=== PATIENT | female | born 1960 | race Two or more races ===

== ENCOUNTER 2016-07-19 21:00 | Emergency (ER) | payer BC ==
[~2016-07-19] VITALS: Ht 154.9 cm; Wt 77.1 kg
[2016-07-19 21:11] VITALS: BP 183/77
[2016-07-19] MEDS ORDERED: IBUPROFEN 800 MG TABLET. PO ONE (21:30)
--- NOTE | 2016-07-19 21:31 | PHYS DOC ---
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 She states that she has been having wrist pain and discomfort for the last few days. She denies any injury or trauma. She states that there is swelling in the wrist area no bruising or discoloration noted. Patient has not taken anything for pain and discomfort. Patient is right-hand dominant. Review of Systems Review of Systems Constitutional: Denies fever or chills [] Eyes: Denies change in visual acuity, redness, or eye pain [] HENT: Denies nasal congestion or sore throat [] Respiratory: Denies cough or shortness of breath [] Cardiovascular: No additional information not addressed in HPI [] GI: Denies abdominal pain, nausea, vomiting, bloody stools or diarrhea [] : Denies dysuria or hematuria [] Musculoskeletal: Denies back pain. C/o left wrist pain Integument: Denies rash or skin lesions [] Neurologic: Denies headache, focal weakness or sensory changes [] Endocrine: Denies polyuria or polydipsia [] Current Medications Current Medications Current Medications Medications (Trade) Dose Ordered Sig/Susie Start Time Stop Time Status Last Admin Dose Admin Ibuprofen (Motrin) 800 mg 1X ONCE 07/19/16 21:30 07/19/16 21:31 DC 07/19/16 21:43 800 MG Allergies Allergies Allergies Coded Allergies Type Severity Reaction Last Updated Verified No Known Drug Allergies 07/19/16 No Physical Exam Physical Exam Constitutional: Well developed, well nourished, no acute distress, non-toxic appearance. [] HENT: Normocephalic, atraumatic, bilateral external ears normal, oropharynx moist, no oral exudates, nose normal. [] Eyes: PERRLA, EOMI, conjunctiva normal, no discharge. [] Neck: Normal range of motion, no tenderness, supple, no stridor. [] Cardiovascular:Heart rate regular rhythm, no murmur [] Lungs & Thorax: Bilateral breath sounds clear to auscultation [] Skin: Warm, dry, no erythema, no rash. [] Back: No tenderness Extremities: Left wrist tenderness, swelling noted to the left wrist with tenderness noted over scaphoid area. No cyanosis, no clubbing, ROM intact, no edema. Peripheral pulses 2+ cap refill brisk less than 2 seconds. Patient with good sensation to the fingers. She is able to move the fingers with no difficulty. Neurologic: Alert and oriented X 3, normal motor function, normal sensory function, no focal deficits noted. [] Psychologic: Affect normal, judgement normal, mood normal. [] Current Patient Data Vital Signs Vital Signs Date Time Temp Pulse Resp B/P (MAP) Pulse Ox O2 Delivery O2 Flow Rate FiO2 07/19/16 21:11 98.3 67 20 97 Room Air 98.3 EKG EKG [] Radiology/Procedures Radiology/Procedures [] Course & Med Decision Making Course & Med Decision Making Pertinent Labs and Imaging studies reviewed. (See chart for details) X-rays negative for any bony abnormalities per Dr Kunz. The wrist does not feel warm to touch. There is no redness noted. Patient will be placed in a sugar tong splint with recommendations to follow-up with orthopedic. The be provided with Dr. Queen's name and number. Patient will be discharged home in stable condition signs symptoms to return back to emergency department as been provided. Recommended ibuprofen 100 mg every 8 hours with food stop taking few develop an upset stomach. [] Dragon Disclaimer Dragon Disclaimer This electronic medical record was generated, in whole or in part, using a voice recognition dictation system. Departure Departure Impression: Primary Impression: Sprain of wrist, left Disposition: 01 HOME, SELF-CARE Condition: STABLE Referrals: CRISTAL QUEEN MD Patient Instructions: Arm Sling Use-Brief, Splint Care, [id number], Wrist Pain, [id number] Additional Instructions: Activity as tolerated Ibuprofen 600 mg every 8 hours with food, stop taking if you develop upset stomach Ice packs on 20 minutes and off 20 minutes several times a day Elevation as much as possible Keep the splint in place until you followup with orthopedic Call tomorrow for orthopedic appointment in next week Return to emergency department as needed for signs and symptoms that become worse. Splinting Splinting : Location: left arm Hand-Made Type: orthoglass Splint: sugar-tong Pre-Proc Neuro Vasc Exam: normal, abnormal Post-Proc Neuro Vasc Exam: normal CELESTINA NAGY APRN Jul 19, 2016 21:31
--- NOTE | 2016-07-20 07:38 | RAD ---
Left wrist radiographs History: Atraumatic wrist pain for one day. Comparison: None. Findings: PA, lateral, and oblique views of the left wrist. No acute fracture or dislocation is identified. No focal soft tissue swelling is seen. Impression: No acute osseous traumatic injury identified.
== END 2016-07-19 22:20 | disposition home or self-care (01) ==
LOC: ER 21:00
DX: S63.502A Unspecified sprain of left wrist, initial encounter (principal); I10 Essential (primary) hypertension; X58.XXXA Exposure to other specified factors, initial encounter; Y93.89 Activity, other specified; Y99.8 Other external cause status; Y92.89 Other specified places as the place of occurrence of the external cause
CPT/HCPCS: 29125; 73110; 99284-25